=== PATIENT | female | born 1990 | race Caucasian/White ===

== ENCOUNTER 2018-02-26 17:45 | Emergency (ER) | payer OTHER ==
[~2018-02-26] VITALS: Ht 160 cm; Wt 58.2 kg
[2018-02-26 17:47] VITALS: Ht 160 cm; Wt 58.2 kg
[2018-02-26] MEDS ORDERED: NORVASC10 MG PO (17:49)
[2018-02-26] MEDS ORDERED: LISINOPRIL5 MG PO (17:50)
[2018-02-26 20:17] VITALS: BP 125/94
== END 2018-02-26 20:17 | disposition home or self-care (01) ==
LOC: D.ER 17:45
DX: S86.112A Strain of other muscle(s) and tendon(s) of posterior muscle group at lower leg level, left leg, initial encounter (principal); W18.30XA Fall on same level, unspecified, initial encounter; Y93.89 Activity, other specified; Y92.89 Other specified places as the place of occurrence of the external cause